=== PATIENT | female | born 1980 | race Caucasian/White ===

== ENCOUNTER 2017-01-11 15:41 | Emergency (ER) | payer BC ==
--- NOTE | 2017-01-11 16:14 | EDM.PDOC ---
ED HPI GENERAL MEDICAL PROBLEM - General Chief Complaint: Abdominal Pain Stated Complaint: UPPER STOMACH PAIN Time Seen by Provider: 01/11/17 16:14 - History of Present Illness INITIAL COMMENTS - FREE TEXT/NARRATIVE: 36-year-old female presents emergency room with abdominal pain. This pain started nearly a week ago on Thursday. She was seen at the [facility] had complete laboratory evaluation including a CAT scan no diagnosis could be made. Patient's continued to have some discomfort she thinks is mostly upper abdominal she thinks it is aggravated by eating not all the time just some of the time. She's had loose stools which she was told to take Imodium for this this seems to be helping the frequency of her stools is decreasing. Patient does not think she is as she has lupus and anti-cardiolipin antibody she takes daily aspirin for this. Upper Abdomen Pain Score (Numeric/FACES): 7 - Related Data Allergies Allergy/AdvReac Type Severity Reaction Status Date / Time Penicillins Allergy Cannot Verified 01/11/17 15:55 Remember Sulfa (Sulfonamide Allergy Shaking Verified 01/11/17 15:55 Antibiotics) Home Meds: Home Meds Aspirin 81 mg PO DAILY 01/11/17 [History] Sucralfate [Carafate] 1 gm PO QIDACANDBED #28 tablet 01/11/17 [Rx] ED ROS GENERAL - Review of Systems Review Of Systems: See Below Constitutional: Reports: No Symptoms HEENT: Reports: No Symptoms Respiratory: Reports: No Symptoms Cardiovascular: Reports: No Symptoms GI/Abdominal: Reports: Abdominal Pain, Diarrhea. Denies: Nausea, Vomiting : Reports: No Symptoms ED EXAM, GI/ABD - Physical Exam Exam: See Below Exam Limited By: No Limitations General Appearance: Alert, No Apparent Distress Head: Atraumatic, Normocephalic Neck: Normal Inspection, Supple, Non-Tender, Full Range of Motion Respiratory/Chest: No Respiratory Distress, Lungs Clear, Normal Breath Sounds Cardiovascular: Regular Rate, Rhythm, No Edema, No Murmur GI/Abdominal Exam: Normal Bowel Sounds, Soft, Other (He has some abdominal discomfort worse in the epigastric area to a lesser degree left upper quadrant and right upper quadrant she also has a little bit worse pain in the right lower quadrant no rebound or guarding noted). No: Distended, Guarding, Rigid, Rebound Back Exam: Normal Inspection. No: CVA Tenderness (L), CVA Tenderness (R) Extremities: Normal Inspection, No Pedal Edema Course - Vital Signs Last Recorded V/S: Last Vital Signs Temp 36.4 C 01/11/17 15:59 Pulse 73 01/11/17 15:59 Resp 17 01/11/17 15:59 BP 139/86 01/11/17 15:59 Pulse Ox 100 01/11/17 15:59 - Orders/Labs/Meds Labs: Laboratory Tests 01/11/17 01/11/17 01/11/17 Range/Units 16:45 16:45 17:00 WBC 5.70 (3.98-10.04) K/mm3 RBC 4.64 (3.98-5.22) M/mm3 Hgb 14.0 (11.2-15.7) gm/L Hct 39.1 (34.1-44.9) % MCV 84.3 (79.4-94.8) fl MCH 30.2 (25.6-32.2) pg MCHC 35.8 H (32.2-35.5) g/dl RDW Std Deviation 39.4 (36.4-46.3) fL Plt Count 227 (182-369) K/mm3 MPV 9.9 (9.4-12.3) fl Neutrophils % (Manual) 75 H (40-60) % Band Neutrophils % 0 (0-10) % Lymphocytes % (Manual) 14 L (20-40) % Atypical Lymphs % 1 % Monocytes % (Manual) 3 (2-10) % Eosinophils % (Manual) 6 H (0.7-5.8) % Basophils % (Manual) 1 (0.1-1.2) Platelet Estimate Adequate Plt Morphology Comment Normal RBC Morph Comment Normal Sodium 140 (136-145) mEq/L Potassium 3.8 (3.5-5.1) mEq/L Chloride 106 (98-107) mEq/L Carbon Dioxide 25 (21-32) mEq/L Anion Gap 12.8 (5-15) BUN 11 (7-18) mg/dL Creatinine 0.8 (0.55-1.02) mg/dL Est Cr Clr Drug Dosing 72.65 mL/min Estimated GFR (MDRD) > 60 (>60) mL/min BUN/Creatinine Ratio 13.8 L (14-18) Glucose 106 (74-106) mg/dL Calcium 9.2 (8.5-10.1) mg/dL Total Bilirubin 0.3 (0.2-1.0) mg/dL AST 18 (15-37) U/L ALT 15 (14-59) U/L Alkaline Phosphatase 37 L (46-116) U/L C-Reactive Protein < 0.2 (<1.0) mg/dL Total Protein 7.8 (6.4-8.2) g/dl Albumin 3.9 (3.4-5.0) g/dl Globulin 3.9 gm/dL Albumin/Globulin Ratio 1.0 (1-2) Lipase 154 (73-393) U/L Urine Color (Yellow) Urine Appearance (Clear) Urine pH (5.0-8.0) Ur Specific [place] (1.005-1.030) Urine Protein (Negative) Urine Glucose (UA) (Negative) Urine Ketones (Negative) Urine Occult Blood (Negative) Urine Nitrite (Negative) Urine Bilirubin (Negative) Urine Urobilinogen (0.2-1.0) Ur Leukocyte Esterase (Negative) Urine RBC (0-5) /hpf Urine WBC (0-5) /hpf Ur Epithelial Cells (0-5) /hpf Urine Bacteria (FEW) /hpf Urine Mucus (FEW) /hpf Urine HCG, Qual Negative (NEGATIVE) 01/11/17 Range/Units 17:00 WBC (3.98-10.04) K/mm3 RBC (3.98-5.22) M/mm3 Hgb (11.2-15.7) gm/L Hct (34.1-44.9) % MCV (79.4-94.8) fl MCH (25.6-32.2) pg MCHC (32.2-35.5) g/dl RDW Std Deviation (36.4-46.3) fL Plt Count (182-369) K/mm3 MPV (9.4-12.3) fl Neutrophils % (Manual) (40-60) % Band Neutrophils % (0-10) % Lymphocytes % (Manual) (20-40) % Atypical Lymphs % % Monocytes % (Manual) (2-10) % Eosinophils % (Manual) (0.7-5.8) % Basophils % (Manual) (0.1-1.2) Platelet Estimate Plt Morphology Comment RBC Morph Comment Sodium (136-145) mEq/L Potassium (3.5-5.1) mEq/L Chloride (98-107) mEq/L Carbon Dioxide (21-32) mEq/L Anion Gap (5-15) BUN (7-18) mg/dL Creatinine (0.55-1.02) mg/dL Est Cr Clr Drug Dosing mL/min Estimated GFR (MDRD) (>60) mL/min BUN/Creatinine Ratio (14-18) Glucose (74-106) mg/dL Calcium (8.5-10.1) mg/dL Total Bilirubin (0.2-1.0) mg/dL AST (15-37) U/L ALT (14-59) U/L Alkaline Phosphatase (46-116) U/L C-Reactive Protein (<1.0) mg/dL Total Protein (6.4-8.2) g/dl Albumin (3.4-5.0) g/dl Globulin gm/dL Albumin/Globulin Ratio (1-2) Lipase (73-393) U/L Urine Color Light yellow (Yellow) Urine Appearance Clear (Clear) Urine pH 6.0 (5.0-8.0) Ur Specific [place] 1.015 (1.005-1.030) Urine Protein Negative (Negative) Urine Glucose (UA) Negative (Negative) Urine Ketones Negative (Negative) Urine Occult Blood Negative (Negative) Urine Nitrite Negative (Negative) Urine Bilirubin Negative (Negative) Urine Urobilinogen 0.2 (0.2-1.0) Ur Leukocyte Esterase Negative (Negative) Urine RBC Not seen (0-5) /hpf Urine WBC 0-5 (0-5) /hpf Ur Epithelial Cells 0-5 (0-5) /hpf Urine Bacteria Moderate H (FEW) /hpf Urine Mucus Not seen (FEW) /hpf Urine HCG, Qual (NEGATIVE) Meds: Medications Discontinued Medications Generic Name Dose Route Start Last Admin Trade Name Freq PRN Reason Stop Dose Admin Al Hydroxide/Mg Hydroxide 30 0 ml 01/11/17 16:36 01/11/17 16:56 ml/ Lidocaine HCl 15 ml PO 01/11/17 16:37 45 ml ONETIME ONE Administration - Re-Assessments/Exams Free Text/Narrative Re-Assessment/Exam: 01/11/17 16:42 We'll try a GI cocktail with the uncertainty of her exam check labs. 01/11/17 18:15 Patient had some relief with the GI cocktail. We will discharge her with Carafate and PPI therapy have her follow-up in the clinic in a couple of days if she continues to have discomfort she can get a HYDA scan of her gallbladder I 'm not sure gallbladder ultrasound would be very beneficial she did not demonstrate stones on her CAT scan done on Thursday. However it would be good to review the results of that. Departure - Departure Time of Disposition: 18:17 Disposition: Home, Self-Care 01 Clinical Impression: Upper abdominal pain - Discharge Information Prescriptions: Sucralfate [Carafate] 1 gm PO QIDACANDBED #28 tablet Referrals: Maria Del Rosario Goncalves NP [Primary Care Provider] - Forms: ED Department Discharge Additional Instructions: Return to emergency room if any questions problems worsening symptoms. Follow-up in the clinic on Thursday or to recheck on how things are going. You been given a prescription for Carafate take one 4 times daily before meals and at bedtime take your other medications at least 1 hour before the Carafate or 2 hours after the Carafate. 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 You can also use Prilosec omeprazole or Zegerid. They all work the same take one tonight and then every morning 60 minutes before your morning meal.
[2017-01-11] MEDS ORDERED: Alum Hydrox/Mag Hydrox/Simeth 30 ML, Lidocaine 2% 15 ML PO ONE ×2 (16:36)
[2017-01-11] MEDS ORDERED: Sucralfate Suspension 1 GM/10 ML Cup PO ONE (18:17)
== END 2017-01-11 18:36 | disposition home or self-care (01) ==
LOC: JD.ED 15:41
DX: R10.11 Right upper quadrant pain (principal); R10.12 Left upper quadrant pain; R10.13 Epigastric pain; Z88.0 Allergy status to penicillin; Z88.2 Allergy status to sulfonamides; Z79.82 Long term (current) use of aspirin; Z79.899 Other long term (current) drug therapy
CPT/HCPCS: 36415; 80053; 81001; 81025; 83690; 85025; 86140; 99284; A9270; 99283